=== PATIENT | female | born 1960 | race Caucasian/White ===

== ENCOUNTER → 2016-12-31 | Outpatient (CLI) | payer MEDICARE, OTHER | LOC: HEART 5 10:26 | DX: J45.40 Moderate persistent asthma, uncomplicated (principal) | CPT/HCPCS: 94060 ==

== ENCOUNTER → 2017-01-07 | Outpatient (CLI) | payer MEDICARE, OTHER | LOC: KOH-I 12-31 09:00 | DX: R10.0 Acute abdomen (principal); R10.2 Pelvic and perineal pain; Z90.710 Acquired absence of both cervix and uterus; K76.0 Fatty (change of) liver, not elsewhere classified; R16.0 Hepatomegaly, not elsewhere classified | CPT/HCPCS: 76700; 76856 ==

== ENCOUNTER → 2020-10-05 | Outpatient (CLI) | payer MEDICARE, OTHER | LOC: RAD 11:47 | DX: M54.2 Cervicalgia (principal); M54.6 Pain in thoracic spine; M54.5 Low back pain; M47.812 Spondylosis without myelopathy or radiculopathy, cervical region; M48.02 Spinal stenosis, cervical region; M48.03 Spinal stenosis, cervicothoracic region; M47.816 Spondylosis without myelopathy or radiculopathy, lumbar region; M48.061 Spinal stenosis, lumbar region without neurogenic claudication | CPT/HCPCS: 72050; 72072; 72110 ==

== ENCOUNTER → 2021-09-30 | Outpatient (CLI) | payer MEDICARE, OTHER | LOC: EXRD 10:38 | DX: R10.2 Pelvic and perineal pain (principal); N83.291 Other ovarian cyst, right side | CPT/HCPCS: 76856 ==

== ENCOUNTER → 2021-11-19 | Outpatient (CLI) | payer MEDICARE, OTHER | LOC: KOH-I 11:14 | DX: N83.291 Other ovarian cyst, right side (principal) | CPT/HCPCS: 76856 ==